=== PATIENT | male | born 1975 | race Caucasian/White ===

== ENCOUNTER 2018-07-30 06:28 | Emergency (ER) | payer BC ==
[~2018-07-30] VITALS: Ht 172.7 cm; Wt 74.0 kg
[2018-07-30] MEDS ORDERED: normal saline 1000ML IV soln IV ONE ×2 (07:00→09:10)
[2018-07-30] MEDS ORDERED: ipratropium/albuterol 3ml nebule NEB ONE (07:00)
[2018-07-30] MEDS ORDERED: albuterol 2.5 MG/3 ML nebule NEB ONE ×2 (07:00→12:10)
--- NOTE | 2018-07-30 07:03 | NUR ---
RT ALREADY IN ER ASKED TO TX BED 703
[2018-07-30 07:34] LABS: BASOPHILS # (AUTO) 0.1 X10'3 (0-0.2); BASOPHILS % (AUTO) 1.1 % (0-1); EOSINOPHILS # (AUTO) 0.1 X10'3 (0-0.9); EOSINOPHILS % (AUTO) 0.7 % (0-6); HEMATOCRIT 44.8 % (42.0-52.0); HEMOGLOBIN 14.7 g/dl (14.0-17.9); LYMPHOCYTES # (AUTO) 1.7 X10'3 (1.1-4.8); LYMPHOCYTES % (AUTO) 14.5 % (21-51); MEAN CORPUSCULAR HEMOGLOBIN 30.5 PG (27.0-31.0); MEAN CORPUSCULAR HGB CONC 32.8 % (33.0-36.5); MEAN CORPUSCULAR VOLUME 92.8 FL (78-98); MEAN PLATELET VOLUME 10.5 FL (7.4-10.4); MONOCYTES % (AUTO) 8.6 % (2-12); NEUTROPHILS % (AUTO) 75.1 % (42-75); PLATELET COUNT 254 X10'3 (140-440); RED BLOOD COUNT 4.82 X10'6 (4.70-6.10); RED CELL DISTRIBUTION WIDTH 14.6 % (11.5-14.5)
[2018-07-30 07:48] LABS: ALANINE AMINOTRANSFERASE 56 U/L (12-78); ALBUMIN 2.9 G/DL (3.4-5.0); ALKALINE PHOSPHATASE 53 IU/L (46-116); ANION GAP 10 (8-16); ASPARTATE AMINO TRANSFERASE 33 U/L (10-37); BILIRUBIN,TOTAL 0.8 MG/DL (0.1-1.0); BLOOD UREA NITROGEN 17 MG/DL (7-18); BUN/CREATININE RATIO 13.2 (5.4-32.0); CALCIUM 8.3 MG/DL (8.5-10.1); CHLORIDE 107 MMOL/L (99-107); CREATININE 1.29 MG/DL (0.60-1.10); GLUCOSE 141 MG/DL (70-104); POTASSIUM 4.2 MMOL/L (3.5-5.1); SODIUM 139 MMOL/L (135-145); TOTAL CARBON DIOXIDE 21.8 MMOL/L (24-32); TOTAL PROTEIN 5.9 G/DL (6.4-8.2); eGFR 61 ML/MIN
[2018-07-30 07:49] LABS: LARGE PLATELETS FEW; PLATELET ESTIMATE NORMAL
[2018-07-30 07:59] LABS: INR 1.1 INR; PARTIAL THROMBOPLASTIN TIME 25 SECONDS (22-32); PROTHROMBIN TIME 10.7 SECONDS (9.0-12.0)
[2018-07-30 09:14] LABS: ETHANOL < 0.010 GM/DL (0.0-0.010)
[2018-07-30 09:34] LABS: URINE AMPHETAMINE SCREEN NEGATIVE (Neg); URINE BARBITUATE SCREEN POSITIVE (Neg); URINE BENZODIAZEPINES SCREEN NEGATIVE (Neg); URINE CANNABINOID SCREEN NEGATIVE (Neg); URINE COCAINE SCREEN NEGATIVE (Neg); URINE METHADONE SCREEN NEGATIVE (Neg); URINE OPIATE SCREEN NEGATIVE (Neg); URINE PHENCYCLIDINE SCREEN NEGATIVE (Neg)
[2018-07-30] MEDS ORDERED: albuterol 2.5 mg/0.5ml nebule NEB ONE (11:20)
[2018-07-30] MEDS ORDERED: levoFLOXACIN 250mg tablet PO ONE (11:20)
[2018-07-30] MEDS ORDERED: methylPREDNISolone sod succ 125mg/2ml vial IV ONE (11:20)
[2018-07-30] MEDS ORDERED: ALBU18HF2 INH (11:23)
[2018-07-30] MEDS ORDERED: PRED20TA PO (11:23)
[2018-07-30] MEDS ORDERED: LEVO750T21 PO (11:23)
--- NOTE | 2018-07-30 11:47 | NUR ---
PAGED RT TO BED 1142
[2018-07-30 12:47] VITALS: BP 142/92
== END 2018-07-30 12:50 | disposition left against medical advice (07) ==
LOC: ER 06:30
DX: J18.9 Pneumonia, unspecified organism (principal); J45.909 Unspecified asthma, uncomplicated; F15.90 Other stimulant use, unspecified, uncomplicated; Z79.899 Other long term (current) drug therapy
CPT/HCPCS: 36415; 71045; 80053; 80305; 80320; 83605; 84145; 85025; 85610; 85730; 87040; 93005; 94640; 94760; 96374; 99284; J2930; J7030; J7611

== ENCOUNTER 2018-08-14 14:18 | Outpatient (CLI) | payer BC ==
[~2018-08-14 14:18] MED LIST: ALBU18HF2 INH
== END 2018-08-14 23:59 | disposition home or self-care (01) ==
LOC: CARD DIAG 14:18
PROVIDERS: ATTEND Internal Medicine Cardiovascular Disease
DX: I08.1 Rheumatic disorders of both mitral and tricuspid valves (principal); J45.909 Unspecified asthma, uncomplicated; Z87.891 Personal history of nicotine dependence
CPT/HCPCS: 93306

== ENCOUNTER 2018-08-15 19:26 | Inpatient (IN) | payer BC ==
[~2018-08-15] VITALS: Ht 172.7 cm; Wt 73.3 kg
[2018-08-15 20:03] LABS: HEMOGLOBIN 16.4 g/dl (14.0-17.9); MEAN CORPUSCULAR HGB CONC 31.9 % (33.0-36.5); RED CELL DISTRIBUTION WIDTH 14.1 % (11.5-14.5)
[2018-08-15 20:10] LABS: ALANINE AMINOTRANSFERASE 173 U/L (12-78); ALBUMIN 3.3 G/DL (3.4-5.0); ALBUMIN/GLOBULIN RATIO 1.1 (1.1-1.5); ALKALINE PHOSPHATASE 65 IU/L (46-116); ANION GAP 10 (8-16); ASPARTATE AMINO TRANSFERASE 102 U/L (10-37); BILIRUBIN,TOTAL 1.7 MG/DL (0.1-1.0); BLOOD UREA NITROGEN 35 MG/DL (7-18); BUN/CREATININE RATIO 18.7 (5.4-32.0); CALCIUM 8.5 MG/DL (8.5-10.1); CHLORIDE 100 MMOL/L (99-107); CREATININE 1.87 MG/DL (0.60-1.10); GLUCOSE 110 MG/DL (70-104); LIPASE 69 U/L (73-393); POTASSIUM 5.2 MMOL/L (3.5-5.1); SODIUM 137 MMOL/L (135-145); TOTAL CARBON DIOXIDE 27.5 MMOL/L (24-32); TOTAL PROTEIN 6.3 G/DL (6.4-8.2); eGFR 40 ML/MIN
[2018-08-15 20:11] LABS: BASOPHILS # (AUTO) 0.1 X10'3 (0-0.2); BASOPHILS % (AUTO) 0.7 % (0-1); EOSINOPHILS % (AUTO) 0.3 % (0-6); HEMATOCRIT 51.3 % (42.0-52.0); LYMPHOCYTES # (AUTO) 2.1 X10'3 (1.1-4.8); LYMPHOCYTES % (AUTO) 13.3 % (21-51); MEAN CORPUSCULAR HEMOGLOBIN 29.5 PG (27.0-31.0); MEAN CORPUSCULAR VOLUME 92.4 FL (78-98); MEAN PLATELET VOLUME 10.8 FL (7.4-10.4); MONOCYTES # (AUTO) 1.4 X10'3 (0-0.9); MONOCYTES % (AUTO) 8.5 % (2-12); NEUTROPHILS # (AUTO) 12.3 X10'3 (1.8-7.7); NEUTROPHILS % (AUTO) 77.2 % (42-75); PLATELET COUNT 211 X10'3 (140-440); RED BLOOD COUNT 5.55 X10'6 (4.70-6.10); WHITE BLOOD COUNT 15.9 X10'3 (4.5-11.0)
[2018-08-15 20:16] LABS: INR 1.3 INR
[2018-08-15] MEDS ORDERED: DOBUTamine-DoBUTrex 500mg/D5W 250 ML IV SCH (20:30)
[2018-08-15] MEDS ORDERED: digoxin 250mcg/ml 2ml ampule IV ONE (20:30)
[2018-08-15] MEDS ORDERED: carVEDilol 3.125mg tablet PO SCH (20:30)
[2018-08-15] MEDS ORDERED: carVEDilol 3.125mg tablet PO ONE (20:30)
[2018-08-15] MEDS: DOBUTamine-DoBUTrex 500mg/D5W 250 ML IV SCH (20:32)
[2018-08-15] MEDS ORDERED: furosemide 10 MG/1 ML 10ml inj IV ONE (20:35)
[2018-08-15 20:45] LABS: CLARITY,URINE CLEAR (Clear); COLOR,URINE YELLOW (Yellow); GLUCOSE, URINE NEGATIVE (Neg); KETONES,URINE TRACE mg/dl (Neg); LEUKOCYTE ESTERASE ,URINE NEGATIVE (Neg); NITRITES, URINE NEGATIVE (Neg); OCCULT BLOOD,URINE TRACE-INTACT (Neg); PROTEIN,URINE 100 mg/dl (Neg)
[2018-08-15] MEDS ORDERED: LORazepam 2 mg/ml vial IV ONE ×2 (20:45→21:30)
[2018-08-15 20:53] LABS: RBC,URINE 0-2 /HPF (0-2); UA COLLECTION TYPE CLN CATCH MIDSTREAM; WBC,URINE 0-4 /HPF (0-4)
[2018-08-15 20:54] LABS: BACTERIA,URINE FEW /HPF (Neg); HYALINE CASTS 0-3 /LPF (NEGATIVE); MUCUS STRANDS MODERATE /LPF (Neg); SQUAMOUS EPITHELIAL CELL,UR FEW /LPF (FEW)
[2018-08-15 21:04] LABS: URINE AMPHETAMINE SCREEN NEGATIVE (Neg); URINE BARBITUATE SCREEN NEGATIVE (Neg); URINE BENZODIAZEPINES SCREEN NEGATIVE (Neg); URINE CANNABINOID SCREEN NEGATIVE (Neg); URINE COCAINE SCREEN NEGATIVE (Neg); URINE METHADONE SCREEN NEGATIVE (Neg); URINE OPIATE SCREEN NEGATIVE (Neg); URINE PHENCYCLIDINE SCREEN NEGATIVE (Neg)
[2018-08-15] MEDS ORDERED: buprenorphine/naloxone 8mg/2mg SL tablet SL PRN (21:30)
[2018-08-15] MEDS ORDERED: carVEDilol 12.5mg tablet PO SCH (21:30)
--- NOTE | 2018-08-15 21:47 | NUR ---
Per Dr Neff, hold Dobutamine for reassess until 2220 to allow for efficacy of cardiac meds given. If needed at that time to decrease HR, then start. Primary RN Guzman notified; note placed on monitor in pt room also.
[2018-08-15] MEDS ORDERED: acetaminophen 325mg tablet PO PRN ×2 (22:30)
[2018-08-15] MEDS ORDERED: ondansetron/PF 4mg/2ml inj IV PRN (22:30)
[2018-08-15] MEDS ORDERED: mag hydrox/Alum hydrox/simeth 30ml oral suspension PO PRN (22:30)
[2018-08-15] MEDS ORDERED: magnesium hydroxide 30ml (MOM) UD suspension PO PRN (22:30)
--- NOTE | 2018-08-15 22:31 | NUR ---
Per Tina Neff and Jenn, hold Dobutamine.
--- NOTE | 2018-08-15 23:09 | NUR ---
RELIEVING RN FOR BREAK, PT IS RESTING QUIETLY ON GURNEY, RESP EVEN AND UNLABORED, EATING A SANDWICH, AXEL WELL, NO N/V, WAITING FOR BED ASSIGNMENT
[2018-08-16] MEDS ORDERED: enoxaparin 40mg/0.4ml syringe SUBCUT SCH (08:00)
--- NOTE | 2018-08-16 10:30 | NUR ---
PT INQUIRED ON WHY HE WAS NOT RECEIVING HIS ROUTINE MED SUBOXONE AND REQUESTING ATIVAN FOR ANXIETY. CALLED HOSPITALIST DR. KHOURY AND RECEIVED TELEPHONE ORDERS FOR REQUESTED MEDS AND MED FOR PTS CONTINUED ELEVATED HR.
[2018-08-16] MEDS: buprenorphine/naloxone 8mg/2mg SL tablet SL SCH ×3 (10:59→19:45)
[2018-08-16] MEDS: LORazepam 0.5 MG tablet PO PRN ×3 (10:59→23:35)
[2018-08-16] MEDS: metoprolol tartrate 50mg tablet PO SCH ×2 (10:59→19:46)
--- NOTE | 2018-08-16 11:30 | NUR ---
RECEIVED CALL FROM DR. HUNTER. PT TO HAVE CMET AND BNP DRAWN. PT MAY HAVE DIET ADVANCED TO CARDIAC DIET WITH 2 GM SODIUM RESTRICTION AND 1500 ML FLUID RESTRICTION.
[2018-08-16] MEDS ORDERED: magnesium 2GM in 50ml NS 50 ML IV PRN (12:35)
[2018-08-16] MEDS ORDERED: potassium Cl 20 mEq SR tablet PO PRN ×2 (12:35)
[2018-08-16] MEDS ORDERED: potassium Cl 40MEQ/NS 500ml 500 ML IV PRN ×2 (12:35)
[2018-08-16] MEDS ORDERED: magnesium 4gm in 100ml NS 100 ML IV PRN (12:35)
[2018-08-16] MEDS ORDERED: digoxin 250mcg/ml 2ml ampule IV ONE (12:35)
[2018-08-16] MEDS ORDERED: amiodarone 50MG/ML inj IV ONE (12:35)
[2018-08-16] MEDS ORDERED: magnesium Cl slow-release 64mg tablet PO PRN (12:35)
[2018-08-16] MEDS ORDERED: magnesium 2GM in 50ml NS 50 ML IV ONE (12:35)
[2018-08-16 12:46] LABS: BASOPHILS # (AUTO) 0.1 X10'3 (0-0.2); BASOPHILS % (AUTO) 0.6 % (0-1); EOSINOPHILS # (AUTO) 0.1 X10'3 (0-0.9); EOSINOPHILS % (AUTO) 0.6 % (0-6); HEMATOCRIT 49.9 % (42.0-52.0); HEMOGLOBIN 16.6 g/dl (14.0-17.9); LYMPHOCYTES # (AUTO) 2.1 X10'3 (1.1-4.8); LYMPHOCYTES % (AUTO) 11.8 % (21-51); MEAN CORPUSCULAR HGB CONC 33.2 % (33.0-36.5); MEAN CORPUSCULAR VOLUME 93.2 FL (78-98); MEAN PLATELET VOLUME 11.8 FL (7.4-10.4); MONOCYTES # (AUTO) 1.4 X10'3 (0-0.9); MONOCYTES % (AUTO) 7.9 % (2-12); NEUTROPHILS # (AUTO) 13.7 X10'3 (1.8-7.7); NEUTROPHILS % (AUTO) 79.1 % (42-75); PLATELET COUNT 219 X10'3 (140-440); RED BLOOD COUNT 5.35 X10'6 (4.70-6.10); RED CELL DISTRIBUTION WIDTH 14.2 % (11.5-14.5); WHITE BLOOD COUNT 17.4 X10'3 (4.5-11.0)
[2018-08-16 12:50] LABS: LARGE PLATELETS FEW; PLATELET ESTIMATE NORMAL
[2018-08-16 12:59] LABS: ALANINE AMINOTRANSFERASE 184 U/L (12-78); ALBUMIN 3.2 G/DL (3.4-5.0); ALBUMIN/GLOBULIN RATIO 1.1 (1.1-1.5); ALKALINE PHOSPHATASE 59 IU/L (46-116); ANION GAP 10 (8-16); ASPARTATE AMINO TRANSFERASE 108 U/L (10-37); BILIRUBIN,TOTAL 1.4 MG/DL (0.1-1.0); BLOOD UREA NITROGEN 32 MG/DL (7-18); BUN/CREATININE RATIO 20.4 (5.4-32.0); CALCIUM 8.7 MG/DL (8.5-10.1); CHLORIDE 102 MMOL/L (99-107); CREATININE 1.57 MG/DL (0.60-1.10); GLUCOSE 104 MG/DL (70-104); POTASSIUM 4.8 MMOL/L (3.5-5.1); SODIUM 137 MMOL/L (135-145); TOTAL PROTEIN 6.1 G/DL (6.4-8.2); eGFR 49 ML/MIN
--- NOTE | 2018-08-16 14:21 | NUR ---
PT C/O IV TO LEFT AC HURTING. OBSERVE SOME REDNESS ABOVE THE IV SITE. DC IV, CANULA INTACT AFTER STARTING 2ND IV TO RIGHT AC AND ADMINISTERING THE AMIODORONE.
[2018-08-16] MEDS ORDERED: furosemide 10 MG/1 ML 10ml inj IV SCH (14:50)
[2018-08-16] MEDS ORDERED: furosemide 20 MG/2 ML vial IV SCH (14:53)
[2018-08-16] MEDS: sodium bicarbonate (8.4%) inj. 150 MEQ in sodium chloride 0.45% 1,000 ML IV SCH (15:34)
[2018-08-16] MEDS ORDERED: furosemide 20 MG/2 ML vial IV ONE (15:45)
--- NOTE | 2018-08-16 17:02 | NUR ---
Patient in room ED 6. I have received report from Steff RN and had the opportunity to ask questions and assume patient care.
[2018-08-16] MEDS: guaiFENesin ER 600mg tablet PO SCH (19:44)
[2018-08-16] MEDS: nicotine 7mg patch - 24hr TD SCH (20:20)
--- NOTE | 2018-08-16 21:12 | NUR ---
Patient in room PCU 3026. I have received report from Eveline OBREIN and had the opportunity to ask questions and assume patient care with Maria E OBRIEN.
[2018-08-16 22:15] VITALS: BP 110/77
[2018-08-17] VITALS (12 sets, daily range): BP systolic 99–138; BP diastolic 55–90
[2018-08-17] MEDS: buprenorphine/naloxone 8mg/2mg SL tablet SL SCH ×4 (01:58→21:02)
--- NOTE | 2018-08-17 03:38 | NUR ---
Radial and groin cath prep done. pt tolerated well.
[2018-08-17] MEDS ORDERED: LIDOcaine/PRILOcaine 5gm cream TP ONE (06:00)
[2018-08-17 06:05] LABS: BASOPHILS # (AUTO) 0.1 X10'3 (0-0.2); BASOPHILS % (AUTO) 0.8 % (0-1); EOSINOPHILS # (AUTO) 0.3 X10'3 (0-0.9); HEMATOCRIT 43.1 % (42.0-52.0); HEMOGLOBIN 14.3 g/dl (14.0-17.9); LYMPHOCYTES # (AUTO) 2.7 X10'3 (1.1-4.8); LYMPHOCYTES % (AUTO) 20.8 % (21-51); MEAN CORPUSCULAR HEMOGLOBIN 30.6 PG (27.0-31.0); MEAN CORPUSCULAR HGB CONC 33.1 % (33.0-36.5); MEAN CORPUSCULAR VOLUME 92.5 FL (78-98); MEAN PLATELET VOLUME 11.1 FL (7.4-10.4); MONOCYTES # (AUTO) 1.2 X10'3 (0-0.9); MONOCYTES % (AUTO) 9.3 % (2-12); NEUTROPHILS # (AUTO) 8.8 X10'3 (1.8-7.7); NEUTROPHILS % (AUTO) 67.1 % (42-75); PLATELET COUNT 193 X10'3 (140-440); RED BLOOD COUNT 4.66 X10'6 (4.70-6.10); RED CELL DISTRIBUTION WIDTH 14.6 % (11.5-14.5); WHITE BLOOD COUNT 13.1 X10'3 (4.5-11.0)
--- NOTE | 2018-08-17 06:14 | NUR ---
Patient in room PCU 3026. I have received report from Maria E OBRIEN and had the opportunity to ask questions and assume patient care.
[2018-08-17 06:17] LABS: ALANINE AMINOTRANSFERASE 154 U/L (12-78); ALBUMIN 2.6 G/DL (3.4-5.0); ALKALINE PHOSPHATASE 55 IU/L (46-116); ANION GAP 9 (8-16); ASPARTATE AMINO TRANSFERASE 79 U/L (10-37); BILIRUBIN,TOTAL 0.8 MG/DL (0.1-1.0); BLOOD UREA NITROGEN 32 MG/DL (7-18); BUN/CREATININE RATIO 20.5 (5.4-32.0); CALCIUM 7.8 MG/DL (8.5-10.1); CHLORIDE 103 MMOL/L (99-107); CREATININE 1.56 MG/DL (0.60-1.10); GLUCOSE 84 MG/DL (70-104); SODIUM 142 MMOL/L (135-145); TOTAL CARBON DIOXIDE 30.2 MMOL/L (24-32); TOTAL PROTEIN 5.1 G/DL (6.4-8.2); eGFR 49 ML/MIN
--- NOTE | 2018-08-17 06:19 | NUR ---
Problems reprioritized. Patient report given, questions answered & plan of care reviewed with kennedi OBRIEN. orientee documentation: I have reviewed and agree with all interventions, assessments performed and documented by Maria E OBRIEN.
--- NOTE | 2018-08-17 06:20 | NUR ---
Problems reprioritized. Patient report given, questions answered & plan of care reviewed with Eveline OBRIEN.
[2018-08-17] MEDS: sodium bicarbonate (8.4%) inj. 150 MEQ in sodium chloride 0.45% 1,000 ML IV SCH (06:45)
[2018-08-17] MEDS ORDERED: iohexol 350MG/ML 100ml bottle IV ONE (07:31)
[2018-08-17] MEDS ORDERED: iohexol 350 MG/ML 50ML vial IV ONE (07:31)
[2018-08-17] MEDS ORDERED: midazolam 2 mg/2 ml injection IV ONE (07:31)
[2018-08-17] MEDS ORDERED: heparin 1,000 units/ml 10ml inj HE ONE (07:31)
[2018-08-17] MEDS ORDERED: fentaNYL/PF 50MCG/1 ML 2ML syringe IV ONE (07:31)
[2018-08-17] MEDS ORDERED: HEPARIN IV ONE (07:31)
[2018-08-17] MEDS ORDERED: LIDOcaine 1% 30ml preserv. free vial SQ ONE (07:31)
[2018-08-17] MEDS ORDERED: nitroGLYCERIN in D5W 50mg/250ml (Tridil) infusion IV ONE (07:31)
[2018-08-17] MEDS ORDERED: NS IV ONE (07:31)
[2018-08-17] MEDS ORDERED: verapamil 2.5 mg/ml inj IV ONE (07:31)
[2018-08-17] MEDS ORDERED: midazolam 2 mg/2 ml injection ONE (08:32)
[2018-08-17 09:10] LABS: ISTAT HGB ART 14.3 g/dl (14.0-18.0); ISTAT Hct ART 42 %PCV (42-52); ISTAT O2 SATURATION ARTERIAL 93 % (95-98); ISTAT SOURCE ART
[2018-08-17 09:10] LABS: ISTAT Hct MIX 41 %PCV (42-52); ISTAT O2 SATURATION MIX VENOUS 70 % (60-80); ISTAT SOURCE MIX
[2018-08-17] MEDS ORDERED: carvedilol 6.25mg tablet PO SCH (10:30)
[2018-08-17] MEDS: guaiFENesin ER 600mg tablet PO SCH ×2 (13:25→21:02)
[2018-08-17] MEDS: spironolactone 25 MG tablet PO SCH (13:25)
[2018-08-17] MEDS: enoxaparin 30mg/0.3ml syringe SUBCUT SCH (13:25)
[2018-08-17] MEDS: LORazepam 0.5 MG tablet PO PRN ×2 (13:41→21:47)
[2018-08-17] MEDS: sacubitril/valsartan 24mg-26mg tablet PO SCH ×2 (14:00→21:02)
[2018-08-17] MEDS: nicotine 7mg patch - 24hr TD SCH (14:00)
--- NOTE | 2018-08-17 14:36 | NUR ---
Diet consult RE Na-restricted/1500ml fluid restriction diet ed. Pt seen by RJ and provided w/ written/verbal Na-Restricted/fluid restricted ed. RD contact information provided. Pt would like turkmen toast w/ breakfast; RJ d/w dietary. RJ reinforced pt to d/w MD regarding diet advancement since diet is an MD order and pt wants to get off fluid restriction. No additional concerns at this time. Addendum: 08/17/18 at [address] Amended: Links added.
--- NOTE | 2018-08-17 18:42 | NUR ---
Patient in room PCU 3012. I have received report from Linda OBRIEN and had the opportunity to ask questions and assume patient care.
[2018-08-17] MEDS: DOBUTamine-DoBUTrex 500mg/D5W 250 ML IV SCH (18:46)
[2018-08-17] MEDS: carvedilol 6.25mg tablet PO SCH (21:47)
[2018-08-18] MEDS: buprenorphine/naloxone 8mg/2mg SL tablet SL SCH ×4 (02:24→19:53)
[2018-08-18 03:00] VITALS: BP 100/61
[2018-08-18 05:11] LABS: BASOPHILS # (AUTO) 0.2 X10'3 (0-0.2); BASOPHILS % (AUTO) 1.9 % (0-1); EOSINOPHILS # (AUTO) 0.5 X10'3 (0-0.9); EOSINOPHILS % (AUTO) 4.2 % (0-6); HEMATOCRIT 49.2 % (42.0-52.0); HEMOGLOBIN 15.7 g/dl (14.0-17.9); LYMPHOCYTES % (AUTO) 25.3 % (21-51); MEAN CORPUSCULAR HEMOGLOBIN 29.9 PG (27.0-31.0); MEAN CORPUSCULAR HGB CONC 31.8 % (33.0-36.5); MEAN CORPUSCULAR VOLUME 93.8 FL (78-98); MEAN PLATELET VOLUME 11.5 FL (7.4-10.4); MONOCYTES # (AUTO) 1.4 X10'3 (0-0.9); MONOCYTES % (AUTO) 11.8 % (2-12); NEUTROPHILS # (AUTO) 6.8 X10'3 (1.8-7.7); NEUTROPHILS % (AUTO) 56.8 % (42-75); PLATELET COUNT 211 X10'3 (140-440); RED BLOOD COUNT 5.25 X10'6 (4.70-6.10); RED CELL DISTRIBUTION WIDTH 14.4 % (11.5-14.5); WHITE BLOOD COUNT 11.9 X10'3 (4.5-11.0)
[2018-08-18 05:44] LABS: ALANINE AMINOTRANSFERASE 160 U/L (12-78); ALBUMIN 2.9 G/DL (3.4-5.0); ALBUMIN/GLOBULIN RATIO 0.9 (1.1-1.5); ALKALINE PHOSPHATASE 75 IU/L (46-116); ANION GAP 6 (8-16); ASPARTATE AMINO TRANSFERASE 66 U/L (10-37); BILIRUBIN,TOTAL 0.7 MG/DL (0.1-1.0); BLOOD UREA NITROGEN 16 MG/DL (7-18); CALCIUM 8.1 MG/DL (8.5-10.1); CHLORIDE 104 MMOL/L (99-107); CREATININE 1.45 MG/DL (0.60-1.10); GLUCOSE 93 MG/DL (70-104); POTASSIUM 3.9 MMOL/L (3.5-5.1); SODIUM 141 MMOL/L (135-145); TOTAL CARBON DIOXIDE 30.8 MMOL/L (24-32); TOTAL PROTEIN 6.1 G/DL (6.4-8.2); eGFR 53 ML/MIN
--- NOTE | 2018-08-18 06:01 | NUR ---
Problems reprioritized. Patient report given, questions answered & plan of care reviewed with Eveline OBRIEN.
--- NOTE | 2018-08-18 06:48 | NUR ---
Patient in room PCU 3012. I have received report from Linda OBRIEN and had the opportunity to ask questions and assume patient care.
[2018-08-18 07:00] VITALS: BP 104/55
--- NOTE | 2018-08-18 07:52 | NUR ---
PAGER ID: [phone] MESSAGE: [id number]/Danielito Rosario just had 4 beat Vtach. Reported seeing spots/visual disturbances this am, checked vitals: stable, neuro check: negative. Thank you. Eveline [phone]
[2018-08-18] MEDS: sacubitril/valsartan 24mg-26mg tablet PO SCH ×2 (08:00→20:04)
--- NOTE | 2018-08-18 08:01 | NUR ---
Dr. Brothers responded. Will consider carotid us and brain mri. Will review pt's blood thinners/lovenox.
--- NOTE | 2018-08-18 08:23 | NUR ---
Paged MRI: Dr. Brothers just ordered mri head/neck for 3012c/Danielito Rosario. Will send screen form. Thank you.
--- NOTE | 2018-08-18 08:31 | NUR ---
Paged vascular: Dr. Brothers just ordered vl carotid for 3012c/Danielito Rosario for CVA eval. Thank you. Received callback to confirm indication (visual disturbances).
[2018-08-18] MEDS: LORazepam 0.5 MG tablet PO PRN ×2 (08:45→19:53)
[2018-08-18] MEDS: guaiFENesin ER 600mg tablet PO SCH ×2 (08:46→19:53)
[2018-08-18] MEDS: spironolactone 25 MG tablet PO SCH (08:46)
[2018-08-18] MEDS: nicotine 7mg patch - 24hr TD SCH (08:46)
[2018-08-18 11:00] VITALS: BP 111/76
[2018-08-18 11:20] LABS: HBSAG SCREEN Negative (Negative); HEP A AB, IGM Negative (Negative); HEP B CORE AB, IGM Negative (Negative); HEPATITIS C ANTIBODY <0.1 s/co ratio (0.0-0.9)
[2018-08-18] MEDS: carvedilol 6.25mg tablet PO SCH ×2 (12:41→22:06)
[2018-08-18] MEDS: enoxaparin 30mg/0.3ml syringe SUBCUT SCH (12:42)
[2018-08-18 15:00] VITALS: BP 119/96
--- NOTE | 2018-08-18 18:50 | NUR ---
Patient in room U 3012. I have received report from Eveline OBRIEN and had the opportunity to ask questions and assume patient care. Pt currently sitting in bed watching tv. Not complaining of pain at this time. Is asking for his ativan for the evening. Finished 100% of dinner. Alert and oriented.
[2018-08-18 19:00] VITALS: BP 116/82
--- NOTE | 2018-08-18 21:25 | NUR ---
Pt refusing to put tele back on. Appears agitated.
[2018-08-18 23:00] VITALS: BP 147/105
[2018-08-18] MEDS ORDERED: diphenhydrAMINE 2%/zinc acetate cream TP PRN (23:35)
[2018-08-19 03:00] VITALS: BP 123/81
[2018-08-19] MEDS: LORazepam 0.5 MG tablet PO PRN ×2 (03:00→08:52)
[2018-08-19] MEDS: buprenorphine/naloxone 8mg/2mg SL tablet SL SCH ×2 (03:00→08:54)
--- NOTE | 2018-08-19 06:00 | NUR ---
Problems reprioritized. Patient report given, questions answered & plan of care reviewed with Halie OBRIEN.
[2018-08-19 06:01] LABS: BASOPHILS # (AUTO) 0.1 X10'3 (0-0.2); BASOPHILS % (AUTO) 0.8 % (0-1); EOSINOPHILS # (AUTO) 0.7 X10'3 (0-0.9); EOSINOPHILS % (AUTO) 5.4 % (0-6); HEMATOCRIT 44.6 % (42.0-52.0); HEMOGLOBIN 14.7 g/dl (14.0-17.9); LYMPHOCYTES # (AUTO) 2.4 X10'3 (1.1-4.8); LYMPHOCYTES % (AUTO) 19.6 % (21-51); MEAN CORPUSCULAR HEMOGLOBIN 30.5 PG (27.0-31.0); MEAN CORPUSCULAR HGB CONC 32.9 % (33.0-36.5); MEAN CORPUSCULAR VOLUME 92.6 FL (78-98); MEAN PLATELET VOLUME 11.7 FL (7.4-10.4); MONOCYTES # (AUTO) 1.4 X10'3 (0-0.9); MONOCYTES % (AUTO) 11.9 % (2-12); NEUTROPHILS # (AUTO) 7.5 X10'3 (1.8-7.7); NEUTROPHILS % (AUTO) 62.3 % (42-75); PLATELET COUNT 196 X10'3 (140-440); RED BLOOD COUNT 4.81 X10'6 (4.70-6.10); RED CELL DISTRIBUTION WIDTH 15.5 % (11.5-14.5); WHITE BLOOD COUNT 12.1 X10'3 (4.5-11.0)
[2018-08-19 06:07] LABS: ALANINE AMINOTRANSFERASE 155 U/L (12-78); ALBUMIN 2.8 G/DL (3.4-5.0); ALBUMIN/GLOBULIN RATIO 0.9 (1.1-1.5); ALKALINE PHOSPHATASE 74 IU/L (46-116); ANION GAP 8 (8-16); ASPARTATE AMINO TRANSFERASE 66 U/L (10-37); BILIRUBIN,TOTAL 0.5 MG/DL (0.1-1.0); BLOOD UREA NITROGEN 15 MG/DL (7-18); BUN/CREATININE RATIO 12.2 (5.4-32.0); CALCIUM 8.2 MG/DL (8.5-10.1); CHLORIDE 106 MMOL/L (99-107); CREATININE 1.23 MG/DL (0.60-1.10); GLUCOSE 102 MG/DL (70-104); MAGNESIUM 1.8 MG/DL (1.5-2.4); SODIUM 140 MMOL/L (135-145); TOTAL CARBON DIOXIDE 26.5 MMOL/L (24-32); TOTAL PROTEIN 5.8 G/DL (6.4-8.2); eGFR 65 ML/MIN
--- NOTE | 2018-08-19 06:42 | NUR ---
Patient in room PCU 3012. I have received report from CAMILLE Morrison and had the opportunity to ask questions and assume patient care.
[2018-08-19 07:00] VITALS: BP 126/78
[2018-08-19] MEDS ORDERED: magnesium 2GM in 50ml NS 50 ML IV ONE (08:05)
[2018-08-19] MEDS: spironolactone 25 MG tablet PO SCH (08:52)
[2018-08-19] MEDS: guaiFENesin ER 600mg tablet PO SCH (08:53)
[2018-08-19] MEDS: sacubitril/valsartan 24mg-26mg tablet PO SCH (08:54)
[2018-08-19] MEDS: enoxaparin 30mg/0.3ml syringe SUBCUT SCH (08:56)
[2018-08-19] MEDS: nicotine 7mg patch - 24hr TD SCH (08:56)
[2018-08-19] MEDS ORDERED: carVEDilol 12.5mg tablet PO SCH (10:00)
[2018-08-19] MEDS ORDERED: NICO-630 TD (10:55)
[2018-08-19] MEDS ORDERED: SACU1TAB PO (10:55)
[2018-08-19] MEDS ORDERED: CARV-50 PO (10:55)
[2018-08-19] MEDS ORDERED: SPIR25TA PO (10:55)
[2018-08-19 11:00] VITALS: BP 121/78
--- NOTE | 2018-08-19 12:24 | NUR ---
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 Pt currently on heart healthy Na restricted diet with documented PO intake 75-100% meeting nutrient needs. LBM 08/18. No edema or wounds. Will continue to follow. Recommendations: 1) Continue with Na restrict heart healthy diet 2) Wt per rx Addendum: 08/19/18 at [address] Amended: Links added.
--- NOTE | 2018-08-19 13:15 | NUR ---
Discharge instructions, including medications, S&S worsening condition, B/P parameters, f/u appt reviewed with patient and . Pt and had opportunities to ask questions. Pt's works with Dr. Nicolas and will schedule f/u appt at office. IV removed, cannula intact. Tele box removed & returned to telesales team leader. ID band removed. All pt belongings, including wallet, cell phone & cell phone insulation cupola charger, gathered up by pt's & sent home with pt. Pt declined wheelchair use and ambulated independently down to lobby to private vehicle.
[2018-08-20] MEDS ORDERED: enoxaparin 40mg/0.4ml syringe SUBCUT SCH (08:00)
== END 2018-08-19 14:15 | disposition home or self-care (01) | DRG 286 ==
LOC: ER 19:26 → ED HOLD 22:29 → PCU 3S 08-16 17:39
PROVIDERS: ADMIT Hospitalist; ATTEND Hospitalist
PROC: 4A023N8 Measurement of Cardiac Sampling and Pressure, Bilateral, Percutaneous Approach (ICD-10-PCS; principal; 2018-08-17)
PROC: B2111ZZ Fluoroscopy of Multiple Coronary Arteries using Low Osmolar Contrast (ICD-10-PCS; 2018-08-17)
PROC: B2151ZZ Fluoroscopy of Left Heart using Low Osmolar Contrast (ICD-10-PCS; 2018-08-17)
DX: I13.0 Hypertensive heart and chronic kidney disease with heart failure and stage 1 through stage 4 chronic kidney disease, or unspecified chronic kidney disease (principal); I50.23 Acute on chronic systolic (congestive) heart failure; F11.20 Opioid dependence, uncomplicated; I47.2 Ventricular tachycardia; E87.5 Hyperkalemia; I42.0 Dilated cardiomyopathy; F15.21 Other stimulant dependence, in remission; F32.9 Major depressive disorder, single episode, unspecified; F41.9 Anxiety disorder, unspecified; I08.1 Rheumatic disorders of both mitral and tricuspid valves; N18.9 Chronic kidney disease, unspecified; J45.909 Unspecified asthma, uncomplicated; R94.5 Abnormal results of liver function studies; D72.829 Elevated white blood cell count, unspecified; I25.10 Atherosclerotic heart disease of native coronary artery without angina pectoris; I27.20 Pulmonary hypertension, unspecified; Z71.51 Drug abuse counseling and surveillance of drug abuser; Z90.81 Acquired absence of spleen; Z87.891 Personal history of nicotine dependence; Z71.6 Tobacco abuse counseling
CPT/HCPCS: 36415; 70544; 70547; 70551; 71045; 76700; 80053; 80074; 80305; 81001; 82803; 83690; 83735; 83880; 84443; 85014; 85025; 85610; 87070; 93005; 93460; 93880; 96374; 96375; 96376; 99152; 99153; 99285; A4620; A6257; C1769; G0378; J0282; J1160; J1644; J1650; J1940; J2060; J2250; J3010; J3475; J3490; J7030; Q9967